=== PATIENT | female | born 1965 | race Caucasian/White ===

== ENCOUNTER → 2018-11-09 | Outpatient (CLI) | payer BC ==
[~2018-11-09] MED LIST: BUPR150T15 PO; PHEN37.599 PO
--- NOTE | 2018-11-09 08:25 | RAD ---
EXAM: Chest and right ribs, 4 views HISTORY: Pain. Trauma. COMPARISON: None. FINDINGS: A frontal view of the chest and 3 views of the right ribs are obtained. There is no infiltrate, effusion or pneumothorax. The heart is normal in size. No displaced rib fracture is seen. There are cholecystectomy clips. IMPRESSION: No acute pulmonary or osseous finding. Electronically signed by: Shoshana Perales MD (11/09/2018 8:22 AM) [place] [id number]
== END | disposition home or self-care (01) ==
LOC: DXRAD 07:43
PROVIDERS: ATTEND Physician Assistant Medical
DX: R07.89 Other chest pain (principal); R07.81 Pleurodynia; Z90.49 Acquired absence of other specified parts of digestive tract
CPT/HCPCS: 71101

== ENCOUNTER → 2020-03-04 | Outpatient (CLI) | payer BC ==
[2020-03-04 10:47] LABS: ALBUMIN 3.5 g/dL (3.4-5.0); DIRECT BILIRUBIN 0.1 mg/dL (0.0-0.2); TOTAL BILIRUBIN 0.3 mg/dL (0.2-1.0)
== END ==
LOC: LAB 08:46
PROVIDERS: ATTEND Physician Assistant Medical
DX: E78.5 Hyperlipidemia, unspecified (principal)
CPT/HCPCS: 36415; 80061; 80076

== ENCOUNTER → 2020-12-27 | Outpatient (CLI) | payer BC ==
--- NOTE | 2020-12-28 08:52 | RAD ---
EXAM: Right knee, 3 views. HISTORY: Pain. COMPARISON: None. FINDINGS: 3 views of the right knee are obtained. There is no fracture, dislocation or subluxation. T here is no joint effusion. IMPRESSION: No acute osseous finding. Electronically signed by: Shoshana Perales MD (12/28/2020 8:49 AM) [facility]
--- NOTE | 2020-12-28 09:41 | RAD ---
XR CERVICAL SPINE 4-5V History: Reason: NECK PAIN / Spl. Instructions: / History: Technique: 5 views cervical spine. Comparison: None. Findings: Normal vertebral body height and alignment. No fracture. Mild degenerative disc changes most prominen t C4-C5 and C5-C6. Facet arthropathy. Normal alignment C1 on C2. Impression: 1. Mild cervical spondylosis. Electronically signed by: Jose Blevins DO (12/28/2020 9:38 AM) [id number]
== END ==
LOC: RAD 16:16
PROVIDERS: ATTEND Physician Assistant Medical
DX: M47.812 Spondylosis without myelopathy or radiculopathy, cervical region (principal); M48.8X2 Other specified spondylopathies, cervical region; M25.561 Pain in right knee
CPT/HCPCS: 72050; 73562

== ENCOUNTER 2021-08-09 23:28 | Emergency (ER) | payer BC ==
[~2021-08-09] VITALS: Ht 165.1 cm; Wt 104.7 kg
--- NOTE | 2021-08-10 00:02 | PHYS DOC ---
Past History Past Surgical History: Other Additional Past Surgical Histo: sleeve General Adult EDM: Chief Complaint: ABDOMINAL PAIN HPI: HPI: Patient is a 56-year-old female who presents with right lower quad abdominal pain. Symptoms have progressively worsened since yesterday afternoon. She thought she might have been constipated, despite having a normal bowel movement earlier. She took some mag citrate, she proceeded to have diarrhea thereafter. She reports nausea, no vomiting. She reports decreased appetite. She denies urinary symptoms. She denies fevers or chills. She has had a previous hysterectomy and cholecystectomy. No previous history of bowel obstruction. Review of Systems: Review of Systems: Constitutional: Denies fever or chills. She does report anorexia. Eyes: Denies change in visual acuity HENT: Denies nasal congestion or sore throat Respiratory: Denies cough or shortness of breath Cardiovascular: Denies chest pain or edema right lower quad GI: Reports RLQ abdominal pain, nausea, denies vomiting. One episode of diarrhea after magnesium citrate use tonight, otherwise no acute bowel habit changes reported. : Denies urinary symptoms. Musculoskeletal: Denies back pain or joint pain Integument: Denies rash Neurologic: Denies headache, focal weakness or sensory changes Psychiatric: Denies depression or anxiety Allergies: Allergies: Allergies Coded Allergies Type Severity Reaction Last Updated Verified No Known Drug Allergies 07/30/13 No Physical Exam: PE: Constitutional: Well developed, well nourished, appears uncomfortable and in pain. Non-toxic. HENT: Normocephalic, atraumatic, mucous membranes are moist. Oropharynx patent and clear. No facial or oral edema or trauma. Eyes: Conjunctiva are normal, no sclera anicteric Neck: Normal range of motion, no tenderness, supple, no stridor. [] Cardiovascular:Heart rate regular rhythm, +2 radial and +2 posterior tibial pulses bilaterally Lungs & Thorax: Lungs are clear to auscultation bilaterally without rales, rhonchi or wheezes. Abdomen: Abdomen is obese, soft, exquisitely tender to palpation in the right lower quadrant at McBurney's, rebound tenderness is noted. Guarding noted. Positive Rovsing's and psoas signs. No CVA tenderness. No flank abdominal ecchymoses. No palpable pulsatile mass. Skin: Warm, dry, no erythema, no rash. No jaundice. Back: No tenderness, no CVA tenderness. [] Extremities: No tenderness, no cyanosis, no clubbing, ROM intact, no edema. No calf tenderness. Neurologic: Alert and oriented X 3, normal motor function, normal sensory function, no focal deficits noted. [] Psychologic: Affect normal, judgement normal, mood normal. [] Current Patient Data: Vital Signs: Vital Signs Date Time Temp Pulse Resp B/P (MAP) Pulse Ox O2 Delivery O2 Flow Rate FiO2 08/09/21 23:35 98.3 94 24 168/109 (128) 97 Room Air EKG: EKG: [] Radiology/Procedures: Radiology/Procedures: IMAGING REPORT Signed PATIENT: ELIZABETH GUAN ACCOUNT: [id number] : 1965 LOCATION: ER AGE: 56 SEX: F EXAM STATUS: REG ER ORD. PHYSICIAN: JESSICA WEBB DO REASON: OMNI 300, 75ML IV.RLQ pain.Hx hailey,hysterectomy,gastric sleeve PROCEDURE: CT ABD PELV W/ IV CONTRST ONLY INDICATION: Reason: OMNI 300, 75ML IV.RLQ pain.Hx hailey,hysterectomy,gastric sleeve / Spl. Instructions: hx endometriosis / History: COMPARISON: May 2014 TECHNIQUE: Axial CT images were obtained through the abdomen and pelvis with intravenous contrast. One or more of the following individualized dose reduction techniques were utilized for this examination: 1. Automated exposure control; 2. Adjustment of the mA and/or kV according to patient size; 3. Use of iterative reconstruction technique. FINDINGS: Postoperative changes to the stomach with suture line seen. Vascular: Scattered calcific atherosclerosis. Hepatobiliary: Postcholecystectomy changes. Prominence of bile ducts which is a common finding postoperatively. Pancreas: No peripancreatic edema. Spleen: Spleen unremarkable. Renal/Bladder: Subcentimeter low-density lesion right kidney could be cyst or angiomyolipoma. No hydronephrosis. Urinary bladder is partially distended. Gastrointestinal: Dilated appendix measuring about 17 mm with thickened wall and adjacent edema and fluid. Enlarged lymph nodes could be reactive. IMPRESSION: * Dilated appendix with adjacent fluid and edema consistent with acute appendicitis. Electronically signed by: Stephanie Dawson MD (08/10/2021 2:07 AM) [id number] DICTATED AND SIGNED BY: STEPHANIE DAWSON MD DATE: 08/10/21 0159 CC: JESSICA WEBB DO; FILIBERTO BURTON ~ Heart Score: C/O Chest Pain: No Risk Factors: Risk Factors: DM, Current or recent (<one month) smoker, HTN, HLP, family history of CAD, obesity. Risk Scores: Score 0 - 3: 2.5% MACE over next 6 weeks - Discharge Home Score 4 - 6: 20.3% MACE over next 6 weeks - Admit for Clinical Observation Score 7 - 10: 72.7% MACE over next 6 weeks - Early Invasive Strategies Course & Med Decision Making: Course & Med Decision Making Pertinent Labs and Imaging studies reviewed. (See chart for details) The patient is given IV fluids, IV morphine, IV Zofran. Clinically she appears to have acute appendicitis, CT confirms the diagnosis. She is kept NPO. IV Zosyn is ordered. General surgery service is not available here at [facility], the patient requested transfer to [facility]. I spoke with on- call general surgeon, Dr. Valdes, who agrees with the plan of care. The patient will be transferred to [facility], accepted for admission by hospitalist, Dr. Morales. Lovely Disclaimer: Lovely Disclaimer: This electronic medical record was generated, in whole or in part, using a voice recognition dictation system. Departure Departure: Impression: Primary Impression: Acute appendicitis Qualified Codes: K35.30 - Acute appendicitis with localized peritonitis, without perforation or gangrene Disposition: 02 SHORT TERM HOSPITAL ([facility]) Admitting Physician: Other Referrals: FILIBERTO BURTON (PCP) JESSICA WEBB DO August 10, 2021 00:02
[2021-08-10] MEDS ORDERED: ONDANSETRON PF 4 MG/2 ML VIAL. ONE (00:13)
[2021-08-10] MEDS ORDERED: MORPHINE SULFATE 4 MG/ML DISP.SYRIN. ONE (00:14)
[2021-08-10 00:24] LABS: CALCIUM 8.8 mg/dL (8.5-10.1); CREATININE 0.8 mg/dL (0.6-1.0); GFR 73.9; POTASSIUM 4.2 mmol/L (3.5-5.1)
[2021-08-10 00:30] LABS: ALBUMIN 3.8 g/dL (3.4-5.0); ALBUMIN/GLOBULIN RATIO 1.2 (1.0-1.7); TOTAL BILIRUBIN 0.4 mg/dL (0.2-1.0); TOTAL PROTEIN 6.9 g/dL (6.4-8.2)
[2021-08-10] MEDS ORDERED: IV NORMAL SALINE 1,000ML 1,000 ML IV ONE (00:30)
[2021-08-10] MEDS ORDERED: ONDANSETRON PF 4 MG/2 ML VIAL. IVP ONE (00:30)
[2021-08-10] MEDS ORDERED: CONTRAST GIVEN. MC PRN (00:30)
[2021-08-10] MEDS ORDERED: MORPHINE SULFATE 4 MG/ML DISP.SYRIN. IV ONE ×3 (00:30→05:00)
[2021-08-10] MEDS ORDERED: IOHEXOL 300 MG/ML 75 ML VIAL. IV ONE (01:00)
[2021-08-10 01:41] LABS: BASO # 0.1 x10^3/uL (0.0-0.2); BASO % 1 % (0-3); EOS # 0.4 x10^3/uL (0.0-0.7); EOS % 4 % (0-3); HEMATOCRIT 40.4 % (36.0-47.0); HEMOGLOBIN 13.2 g/dL (12.0-15.5); LYMPH # 1.8 x10^3/uL (1.0-4.8); LYMPH % 16 % (24-48); MEAN CORPUSCULAR HEMOGLOBIN 29 pg (25-35); MEAN CORPUSCULAR HGB CONC 33 g/dL (31-37); MEAN CORPUSCULAR VOLUME 89 fL (79-100); MONO % 9 % (0-9); NEUT # 7.9 x10^3uL (1.8-7.7); NEUT % 71 % (31-73); PLATELET COUNT 295 x10^3/uL (140-400); RED BLOOD COUNT 4.54 x10^6/uL (3.50-5.40); RED CELL DISTRIBUTION WIDTH 12.8 % (11.5-14.5); WHITE BLOOD COUNT 11.2 x10^3/uL (4.0-11.0)
--- NOTE | 2021-08-10 02:10 | RAD ---
INDICATION: Reason: OMNI 300, 75ML IV.RLQ pain.Hx hailey,hysterectomy,gastric sleeve / Spl. Instructio ns: hx endometriosis / History: COMPARISON: May 2014 TECHNIQUE: Axial CT images were obtained through the abdomen and pelvis with intravenous contrast. One or more of the following individualized dose reduction techniques were utilized for this examinat ion: 1. Automated exposure control; 2. Adjustment of the mA and/or kV according to patient size; 3 . Use of iterative reconstruction technique. FINDINGS: Postoperative changes to the stomach with suture line seen. Vascular: Scattered calcific atherosclerosis. Hepatobiliary: Postcholecystectomy changes. Prominence of bile ducts which is a common finding postop eratively. Pancreas: No peripancreatic edema. Spleen: Spleen unremarkable. Renal/Bladder: Subcentimeter low-density lesion right kidney could be cyst or angiomyolipoma. No hydr onephrosis. Urinary bladder is partially distended. Gastrointestinal: Dilated appendix measuring about 17 mm with thickened wall and adjacent edema and f luid. Enlarged lymph nodes could be reactive. IMPRESSION: * Dilated appendix with adjacent fluid and edema consistent with acute appendicitis. Electronically signed by: Umair Arizmendi MD (08/10/2021 2:07 AM) [id number]
[2021-08-10 02:12] LABS: BACTERIA,URINE 0 /HPF (0-FEW); CLARITY,URINE CLEAR; COLOR,URINE YELLOW; GLUCOSE,URINE NEG (NEG); NITRITE,URINE NEG (NEG); RBC,URINE 0 /HPF (0-2); SQUAMOUS EPITHELIAL CELL,UR FEW /LPF; UROBILINOGEN,URINE 0.2 mg/dL (0.2 mg/dL); WBC,URINE 0 /HPF (0-4)
[2021-08-10] MEDS ORDERED: IV NORMAL SALINE 50ML 50 ML ONE (02:20)
[2021-08-10] MEDS ORDERED: PIPERACILLIN/TAZOBACTAM 3.375 GM VIAL IV ONE (02:20)
[2021-08-10] MEDS ORDERED: PIPERACILLIN/TAZOBACTAM 3.375 GM in IV NORMAL SALINE 50ML 50 ML IV ONE (02:30)
[2021-08-10 02:43] VITALS: BP 139/85
== END 2021-08-10 04:31 | disposition short-term general hospital (02) ==
LOC: ER 23:28
DX: K35.30 Acute appendicitis with localized peritonitis, without perforation or gangrene (principal); Z20.822 Contact with and (suspected) exposure to COVID-19; Z90.710 Acquired absence of both cervix and uterus; Z90.49 Acquired absence of other specified parts of digestive tract
CPT/HCPCS: 36415; 74177; 80053; 81001; 83605; 83690; 85025; 87426; 96361; 96365; 96366; 96375; 96376; 99285; C9803; J2270; J2405; J2543; J7030; Q9967; U0003

== ENCOUNTER → 2021-08-17 | Outpatient (CLI) | payer BC ==
[2021-08-10 02:43] VITALS: BP 139/85
--- NOTE | 2021-08-17 10:35 | RAD ---
EXAM: Lumbar spine, 3 views. HISTORY: Radiculopathy. COMPARISON: 12/27/2020 FINDINGS: 3 views of the lumbar spine are obtained. There is mild lumbar levoscoliosis. There is no l isthesis. There is mild endplate remodeling at L2-L3 and L3-L4. There is facet arthropathy at the lum bosacral junction. IMPRESSION: Mild multilevel degenerative change and mild scoliosis. No acute osseous finding. Electronically signed by: Shoshana Perales MD (08/17/2021 10:32 AM) [id number]
--- NOTE | 2021-08-17 10:38 | RAD ---
EXAM: Left knee, 3 views. HISTORY: Pain. Arthritis. COMPARISON: None. FINDINGS: 3 views of the left knee are obtained. There is no fracture, dislocation or subluxation. Th ere is no joint effusion. IMPRESSION: No acute osseous finding. Electronically signed by: Shoshana Perales MD (08/17/2021 10:35 AM) [id number]
== END ==
LOC: RAD 10:05
PROVIDERS: ATTEND Physician Assistant Medical
DX: M47.26 Other spondylosis with radiculopathy, lumbar region (principal); M41.86 Other forms of scoliosis, lumbar region; M25.562 Pain in left knee
CPT/HCPCS: 72110; 73562